=== PATIENT | female | born 1950 ===

== ENCOUNTER 2023-01-21 05:50 | Day surgery (SDC) | payer OTHER ==
[~2023-01-21 05:50] MED LIST: GLIPIZIDE XL10 MG PO; LIPITOR40 MG PO; METFORMIN HCL500 M3 PO; TENORMIN25 MG PO; VALSARTAN40 MG PO
[2023-01-21] MEDS ORDERED: TRAM1TAB98 PO (11:06)
[2023-01-21] MEDS ORDERED: MACROBID 100 M100 MG PO (11:06)
== END 2023-01-21 13:10 | disposition home or self-care (01) ==
LOC: CIR.AMB 05:50
PROVIDERS: ATTEND Obstetrics & Gynecology Gynecology
DX: N81.6 Rectocele (principal); N81.5 Vaginal enterocele; Z20.822 Contact with and (suspected) exposure to COVID-19